=== PATIENT | female | born 1995 | race Two or more races ===

== ENCOUNTER 2025-04-25 06:05 | Inpatient (IN) ==
[2025-04-25] MEDS ORDERED: ZOFRAN INJ 4 MG VIAL IVP PRN (06:36)
[2025-04-25] MEDS ORDERED: REGLAN INJ 10 MG VIAL IVP PRN (06:36)
[2025-04-25] MEDS: D5 1/2 NS 1,000 ML 1,000 ML IV SCH (06:52)
[2025-04-25] MEDS: OXYTOCIN 20 UNIT/1,000 ML-NS 20 UNIT/1,000 ML PLAST..BAG IV PRN (07:00)
[2025-04-25] MEDS: NS 100 ML IV 100 ML ONE ×3 (07:04→19:25)
[2025-04-25] MEDS: AMPICILLIN VIAL 2 GRAM 2 G in NS 100 ML IV + SPIKE MINIBAG* 100 ML IV SCH (07:04)
[2025-04-25 07:24] LABS: MEAN PLATELET VOLUME 10.6 fL (7.4-11.0); RED CELL DISTRIBUTION WIDTH 14.5 % (11.6-16.5)
[2025-04-25 07:29] LABS: CREATININE 0.61 mg/dL (0.55-1.02); eGFR NON BLACK RACES > 60 (>60)
[2025-04-25] MEDS: D5 1/2 NS 1,000 ML 1,000 ML IV ONE (08:04)
[2025-04-25] MEDS: AMPICILLIN VIAL 2 GRAM ONE (08:04)
[2025-04-25] MEDS: AMPICILLIN VIAL 1 GRAM 1 G in NS 50 ML IV 50 ML IV SCH (11:43)
[2025-04-25] MEDS ORDERED: NUBAIN INJ 10 MG AMP ONE (13:15)
[2025-04-25] MEDS: NUBAIN INJ 10 MG AMP IVP PRN (13:18)
[2025-04-25] MEDS: BETADINE SOLN ONE (15:20)
[2025-04-25] MEDS: PITOCIN IVP ONE (15:27)
[2025-04-25] MEDS ORDERED: DERMOPLAST PAIN RELIEF SPRAY TOP PRN (16:14)
[2025-04-25] MEDS ORDERED: MILK OF MAGNESIA PO PRN (16:14)
[2025-04-25] MEDS ORDERED: MOTRIN TAB 800 MG PO PRN (16:14)
[2025-04-25] MEDS: OXYTOCIN 20 UNIT/1,000 ML-NS 20 UNIT/1,000 ML PLAST..BAG IV SCH (16:23)
[2025-04-25] MEDS: PITOCIN ONE (19:23)
[2025-04-25] MEDS: AMPICILLIN VIAL 1 GRAM ONE ×2 (19:24)
[2025-04-25] MEDS: NUBAIN INJ 10 MG AMP ONE (19:25)
[2025-04-26 00:58] VITALS: O2SAT 98
[2025-04-26 03:56] VITALS: RESP 18
[2025-04-26 08:29] VITALS: BP 104/68; PULSE 71; TEMP 98.4
[2025-04-26] MEDS: PRENATAL PLUS PO SCH (08:30)
== END 2025-04-26 18:35 | disposition home or self-care (01) | DRG 807 ==
LOC: LD 06:05 → MED/SURG 16:50
PROVIDERS: ADMIT Obstetrics & Gynecology Obstetrics; ATTEND Obstetrics & Gynecology Obstetrics
DX: Z55.8 Other problems related to education and literacy; Z3A.40 40 weeks gestation of pregnancy; O98.82 Other maternal infectious and parasitic diseases complicating childbirth; B95.1 Streptococcus, group B, as the cause of diseases classified elsewhere; Z37.0 Single live birth